=== PATIENT | female | born 1965 | race Two or more races ===

== ENCOUNTER 2018-05-27 15:03 | Emergency (ER) | payer BC, OTHER ==
[~2018-05-27] VITALS: Ht 162.6 cm; Wt 78.9 kg
[~2018-05-27 15:03] MED LIST: DOXYCYCLINE HY100 MG PO; MIRALAX17 GM PO; PAROXETINE HCL20 MG PO
[2018-05-27] MEDS ORDERED: SODIUM CHLORIDE 0.9% 1000ML 1,000 ML IV STA (15:15)
[2018-05-27] MEDS ORDERED: MORPHINE SULFATE INJ 4 MG/ML INJ IV STA (15:15)
[2018-05-27] MEDS ORDERED: ONDANSETRON HCL INJ 2 MG/ML VIAL IV STA (15:15)
[2018-05-27] MEDS ORDERED: ACETAMINOPHEN 325 MG TAB PO STA (15:19)
[2018-05-27] MEDS ORDERED: MORPHINE SULFATE 2 MG/ML SYR ONE (15:27)
[2018-05-27 15:30] LABS: BASOPHILS % 0.2 % (0.0-1.0); EOSINOPHILS % 0.2 % (0.0-6.0); HEMATOCRIT 35.4 % (34.2-44.1); LYMPHOCYTES # (AUTO) 1.1 (1.0-3.2); LYMPHOCYTES % 9.7 % (18.0-39.1); MEAN CORPUSCULAR HEMOGLOBIN 29.1 pg (28-32); MEAN CORPUSCULAR HGB CONC 33.9 g/dL (31-35); MEAN CORPUSCULAR VOLUME 85.7 fL (81-99); MONOCYTES % 8.9 % (4.4-11.3); NEUTROPHILS # (AUTO) 9.3 (2.1-6.9); NEUTROPHILS % 80.5 % (38.7-80.0); PLATELET COUNT 284 x10e3/uL (140-360); RED BLOOD COUNT 4.13 x10e6/uL (3.6-5.1); RED CELL DISTRIBUTION WIDTH 12.8 % (11.7-14.4)
[2018-05-27 15:44] LABS: ALANINE AMINOTRANSFERASE 33 IU/L (0-55); ALBUMIN 3.2 g/dL (3.5-5.0); ALBUMIN/GLOBULIN RATIO 0.7 (0.8-2.0); ALKALINE PHOSPHATASE 65 IU/L (40-150); AMYLASE 35 U/L (25-125); BLOOD UREA NITROGEN 14 mg/dL (7-26); BUN/CREATININE RATIO 17 (6-25); CALCIUM 9.2 mg/dL (8.4-10.2); CARBON DIOXIDE 25 mmol/L (22-29); CHLORIDE 98 mmol/L (98-107); CREATINE KINASE 36 IU/L (29-168); CREATININE, SERUM 0.83 mg/dL (0.57-1.11); EST GLOMERULAR FILTRATION RATE > 60 ML/MIN (60-); GLUCOSE 189 mg/dL (74-118); LIPASE 25 U/L (8-78); SODIUM 134 mmol/L (136-145)
[2018-05-27 16:09] LABS: BILIRUBIN,URINE NEGATIVE (NEGATIVE); CLARITY,URINE SL CLOUDY (CLEAR); COLOR,URINE YELLOW (YELLOW); KETONES,URINE NEGATIVE (NEGATIVE); LEUKOCYTE ESTERASE ,URINE 2+ (NEGATIVE); NITRITE,URINE POSITIVE (NEGATIVE); PROTEIN,URINE DIPSTICK 1+ (NEGATIVE)
[2018-05-27 16:10] LABS: PREGNANCY TEST, URINE NEGATIVE (NEGATIVE); URINE UROBILINOGEN 1 mg/dL (0.2 - 1)
[2018-05-27 16:17] LABS: BACTERIA,URINE MANY /HPF; EPITHELIAL CELLS,URINE FEW /LPF; RBC,URINE 0-5 /HPF (0-5); WBC,URINE (MAN) >50 /HPF (0-5)
--- NOTE | 2018-05-27 16:26 | Diagnostic Imaging Report ---
EXAMINATION: CHEST SINGLE (PORTABLE) COMPARISON: CT abdomen/pelvis 05/21/2017 INDICATION: Fever, chills, headache DISCUSSION: Frontal view of the chest obtained at 1547 hours. HEART AND MEDIASTINUM: The cardiomediastinal silhouette is unremarkable. LINES: None. LUNGS: The lungs are well inflated and clear. No pneumonia or pulmonary edema. PLEURA: No pleural effusion or pneumothorax. BONES AND SOFT TISSUES: No focal osseous lesion. The soft tissues are normal. IMPRESSION: No acute cardiopulmonary disease. Signed by: Dr. Danyell Sotomayor MD on 05/27/2018 4:21 PM
[2018-05-27] MEDS ORDERED: CEFTRIAXONE SOD 1 GM VIAL IV STA (16:45)
--- NOTE | 2018-05-27 17:15 | Diagnostic Imaging Report ---
CT Abdomen And Pelvis with Intravenous Contrast INDICATION: Nausea, vomiting, diarrhea TECHNIQUE: Thin collimation axial images obtained from the diaphragm to the level of the pubic symphysis following the uneventful administration of 100 cc of low osmolar, nonionic intravenous contrast. RADIATION DOSE: Total DLP: 343.7 mGy*cm Estimated effective dose: (DLP x 0.015 x size factor) mSv CTDIvol has been reviewed. It is below the limits set by the Radiation Protocol Committee (RPC). COMPARISON: CT abdomen/pelvis 05/21/2017. ABDOMEN FINDINGS: Lung Bases: Tiny posterior pleural effusions and bibasilar atelectasis. Visualized portion of the mediastinum is normal. Liver: Mildly heterogeneous attenuation may be secondary to timing of the contrast bolus. No mass. Gallbladder: Present and contains a small amount of sludge. No biliary ductal dilatation. Pancreas: Normal attenuation without mass or ductal dilatation. Spleen: Normal in size. No evidence of mass.. Adrenal Glands: No evidence for mass. Kidneys: Right: Heterogeneous enhancement of the renal parenchyma. Mild perinephric inflammation. No hydronephrosis. Left: Subtle focus of hypoattenuation in the anterior interpolar region (image 31). This is new. No significant perinephric inflammation. No hydronephrosis. Lymph Nodes: No enlarged abdominal or periaortic lymph nodes. 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 Small Bowel: Normal in caliber with normal wall thickness. Large Bowel: Normal in caliber with normal wall thickness. Appendix: Not visualized and may be absent or collapsed. Bladder: Normal. Ureters: The proximal right ureter is mildly distended with enhancement of the mucosa extending to the mid ureter. The distal ureter is collapsed. The uterus is present and normal in morphology. The peroneal true vessels are prominent. No adnexal mass. No free fluid or fluid collection. Bones: Mild degenerative changes of the spine are stable. No focal osseous lesions. Soft tissues: Postoperative changes of the anterior abdomen wall are stable. No evidence of hernia. IMPRESSION: 1. Heterogeneous enhancement of the renal cortices is suggestive of pyelonephritis. Hyperemia of the right ureteral mucosa is suggestive of an infectious/inflammatory process. Please correlate with urinalysis/urine culture. No evidence of abscess at this time. 2. No hydronephrosis. 3. Stable postoperative changes of the stomach. No evidence for bowel obstruction or inflammation. Signed by: Dr. Danyell Sotomayor MD on 05/27/2018 5:12 PM
[2018-05-27 18:12] VITALS: BP 103/62
[2018-05-27] MEDS ORDERED: IOPAMIDOL 370 MG/ML 200 ML INFUS..BTL INJ ONE (21:43)
[2018-05-27] MEDS ORDERED: SODIUM CHLORIDE 0.9% 50ML 50 ML ONE (21:43)
== END 2018-05-27 18:30 | disposition home or self-care (01) ==
LOC: ER 15:03
DX: R11.2 Nausea with vomiting, unspecified (principal); M54.5 Low back pain; N10 Acute pyelonephritis; F41.9 Anxiety disorder, unspecified
CPT/HCPCS: 36415; 71045; 74177; 80053; 81001; 81025; 82150; 82550; 82553; 83605; 83690; 84484; 85025; 87040; 93005; 99284; J0696; J2270; J2405; J7030; Q9967

== ENCOUNTER 2023-09-24 20:21 | Emergency (ER) | payer BC ==
[~2023-09-24] VITALS: Ht 162.6 cm; Wt 61.2 kg
[2023-09-24] MEDS ORDERED: IBUPROFEN 600 MG TAB PO STA (20:37)
[2023-09-24 22:41] VITALS: O2SAT 99
[2023-09-24] MEDS ORDERED: ULTRAM 50MG50 MG PO (22:43)
== END 2023-09-24 22:55 | disposition home or self-care (01) ==
LOC: ER 20:30
DX: S92.352A Displaced fracture of fifth metatarsal bone, left foot, initial encounter for closed fracture (principal); S80.211A Abrasion, right knee, initial encounter; W01.0XXA Fall on same level from slipping, tripping and stumbling without subsequent striking against object, initial encounter; Y93.01 Activity, walking, marching and hiking; Y92.89 Other specified places as the place of occurrence of the external cause; E11.9 Type 2 diabetes mellitus without complications; F41.9 Anxiety disorder, unspecified; Z98.84 Bariatric surgery status
CPT/HCPCS: 99283